=== PATIENT | female | born 1990 | race Hispanic/Latino ===

== ENCOUNTER 2018-05-14 23:31 | Emergency (ER) | payer SELFPAY ==
[2018-05-14 23:49] VITALS: BP 129/85; PULSE 73; TEMP 98.6; O2SAT 97
--- NOTE | 2018-05-15 00:14 | C.PDOC ---
History Of Present Illness 28 year old female presents to the ER with a complaint of left facial pain radiating to the left ear for the past 3 days. (+) nasal congestion. PT notes the facial pain worsens with certain head movements. Took advil with transient relief. Denies fever, change in hearing, chest pain, sob, or sore throat. Time Seen by Provider: 05/14/18 23:44 Chief Complaint (Nursing): ENT Problem History Per: Patient History/Exam Limitations: None Onset/Duration Of Symptoms: Days Current Symptoms Are (Timing): Still Present Symptoms Have Been: Continuous Anticoagulant/Antiplatlet Use?: No Past Medical History Reviewed: Historical Data, Nursing Documentation, Vital Signs Vital Signs: Last Vital Signs Temp 98.6 F 05/14/18 23:46 Pulse 73 05/14/18 23:46 Resp 20 05/15/18 00:59 BP 129/85 05/14/18 23:46 Pulse Ox 97 05/15/18 01:43 - Medical History PMH: Seizures Family History: States: Unknown Family Hx - Social History Hx Alcohol Use: No Hx Substance Use: No - Immunization History Hx Tetanus Toxoid Vaccination: No Hx Influenza Vaccination: Yes Hx Pneumococcal Vaccination: No Review Of Systems Constitutional: Negative for: Fever, Chills ENT: Positive for: Ear Discharge (Left), Nose Discharge, Other (Left ear and facial pain) Respiratory: Negative for: Cough Physical Exam - Physical Exam Appears: Non-toxic, No Acute Distress Skin: Normal Color, Warm, Dry Head: Atraumatic, Normacephalic, Tenderness (Left maxillary sinus, left frontal sinus) Eye(s): bilateral: Normal Inspection, PERRL, EOMI Ear(s): Bilateral: Normal, Other (no mastoid tenderness, no tragus tenderness) Nose: Normal Oral Mucosa: Moist Teeth: Normal Dentition, No Tender To Palpation Gingiva: No Erythema, No Swelling, Tender ((+) TTP left mandibular molar with filling (notes she will be getting a crown)) Throat: Normal, No Erythema, No Exudate Neck: Normal, Normal ROM, Supple Chest: Symmetrical Cardiovascular: Rhythm Regular Respiratory: Normal Breath Sounds, No Accessory Muscle Use Extremity: Normal ROM Neurological/Psych: Oriented x3, Normal Speech, Normal Cognition ED Course And Treatment O2 Sat by Pulse Oximetry: 97 (Room air) Pulse Ox Interpretation: Normal Progress Note: Instructed to follow up with PMD in 1-2 days or discussed return precautions. Disposition - Disposition Disposition: HOME/ ROUTINE Disposition Time: 00:11 Condition: STABLE Additional Instructions: Follow up with the clinic in 2-3 days for further evaluation. Take medications as prescribed. Return to the emergency department at any time if symptoms persist or worsen. You may call [facility] service for any assistance [phone]. Prescriptions: Amoxicillin/Clavulanate [Augmentin 875 MG-125 MG] 1 tab PO BID #14 tab Guaifen/Dextromethorphan/PE [Mucinex Fast-Max Congest-Cough] 1 each PO Q6 #20 tablet Naproxen [Naprosyn] 1 tab PO BID PRN #20 tab PRN Reason: Pain Instructions: Sinusitis, Adult (DC) Forms: [employer] (Malay) - Clinical Impression Clinical Impression: Sinusitis - PA / PUBLICATION MANAGER / Resident Statement MD/DO has reviewed & agrees with the documentation as recorded. - Scribe Statement The provider has reviewed the documentation as recorded by the Scribmadeline Antony All medical record entries made by the Baljinderibmadeline were at my direction and personally dictated by me. I have reviewed the chart and agree that the record accurately reflects my personal performance of the history, physical exam, medical decision making, and the department course for this patient. I have also personally directed, reviewed, and agree with the discharge instructions and disposition.
[2018-05-15] MEDS ORDERED: Naproxen 550 mg Tab PO ONE (00:35)
[2018-05-15] MEDS ORDERED: Amoxicillin-Clav 875-125 mg Tab PO ONE (00:35)
[2018-05-15 01:00] VITALS: RESP 20
== END 2018-05-15 00:59 | disposition home or self-care (01) ==
LOC: C.ER 23:31
DX: J32.9 Chronic sinusitis, unspecified (principal)